=== PATIENT | female | born 1990 ===

== ENCOUNTER 2018-11-12 06:08 | Inpatient (IN) | payer OTHER ==
[~2018-11-12] VITALS: Ht 162.6 cm; Wt 66.2 kg
[2018-11-12] VITALS (16 sets, daily range): BP systolic 93–131; BP diastolic 55–89
[~2018-11-12 06:08] MED LIST: NKM
[2018-11-12] MEDS ORDERED: LR 1000ml 1,000 ML IVLG SCH (06:24)
--- NOTE | 2018-11-12 06:25 | Anethesia Preoperative Eval ---
Anesthesia Pre-op PMH/ROS General Date of Evaluation: Nov 12, 2018 Time of Evaluation: 07:11 Anesthesiologist: Danii ASA Score: ASA 1 Mallampati Score Class I : Soft palate, uvula, fauces, pillars visible Class II: Soft palate, uvula, fauces visible Class III: Soft palate, base of uvula visible Class IV: Only hard plate visible Mallampati Classification: Class I Surgeon: Bruno Diagnosis: Neck Pain Surgical Procedure: C 4-5 ADR Anesthesia History: none Family History: no anesthesia problems Allergies: Coded Allergies: No Known Allergies (Unverified , 11/10/18) Medications: see eMAR Patient NPO?: Yes Past Medical History Pulmonary: Reports: other - Bronchitis, Pneumonia Anesthesia Pre-op Phys. Exam Physician Exam Vital Signs Date Time Temp Pulse Resp B/P (MAP) Pulse Ox O2 Delivery O2 Flow Rate FiO2 11/12/18 06:40 97.8 61 18 104/62 (76) 99 11/12/18 06:53 Room Air Constitutional: NAD Neurologic: CN 2-12 intact Cardiovascular: RRR Respiratory: CTA Gastrointestinal: S/NT/ND Airway Exam Mallampati Score: Class I MO: full ROM: limited Teeth: intact Anesthesia Pre-op A/P Risk Assessment & Plan Assessment: ASA 1 Plan: GA, SED, GlideScope Go Status Change Before Surgery: No Pre-Antibiotics Dru Grams Ancef IV Given Within 1 Hr of Incision: Yes Time Given: 07:31 Aj Foy MD Nov 12, 2018 06:25
[2018-11-12] MEDS ORDERED: Atropine Sulfate 0.4mg/ml inj IVP PRN (06:30)
[2018-11-12] MEDS ORDERED: Ketorolac 30mg Inj IV PRN ×2 (06:30)
[2018-11-12] MEDS ORDERED: LORazepam Inj 2mg/ml 1ml IV PRN (06:30)
[2018-11-12] MEDS ORDERED: Hydromorphone 0.5mg/0.5ml inj IVP PRN (06:30)
[2018-11-12] MEDS ORDERED: Midazolam 2mg/2ml Inj IVP PRN (06:30)
[2018-11-12] MEDS ORDERED: fentaNYL 100 mcg/2 mL IV PRN (06:30)
[2018-11-12] MEDS ORDERED: Labetalol 5mg/ml 20ml vial IV PRN (06:30)
[2018-11-12] MEDS ORDERED: oxyCODONE HCL/Acetaminophen 5/325mg ORAL PRN (06:30)
[2018-11-12] MEDS ORDERED: Acetaminophen (Non formulary) 100 ML IV ONE (06:30)
[2018-11-12] MEDS ORDERED: DiphenhydrAMINE 50mg/ml Inj IVP PRN (06:30)
[2018-11-12] MEDS ORDERED: HYDROcodone/Acetamin 5/325 tab ORAL PRN ×2 (06:30→07:30)
[2018-11-12] MEDS ORDERED: Meperidine 50mg/ml Inj(FOR RIGORS ONLY) IVP PRN (06:30)
[2018-11-12] MEDS ORDERED: Metoclopramide 10mg/2ml Inj IVP PRN ×3 (06:30→07:45)
[2018-11-12] MEDS ORDERED: HYDROcodone/Acetamin 7.5/325 tab ORAL PRN ×3 (06:30→07:30)
[2018-11-12] MEDS ORDERED: Zemuron 50mg/5ml Inj IV ONE (06:32)
[2018-11-12] MEDS ORDERED: Vancomycin 1gm vial IVPB ONE (06:42)
[2018-11-12] MEDS ORDERED: Thrombin 5000 units TOPIC ONE (06:42)
[2018-11-12] MEDS ORDERED: Gelfoam Size TOPIC ONE (06:42)
[2018-11-12] MEDS ORDERED: Bacitracin 50000 Units Vial ONE (06:43)
[2018-11-12] MEDS ORDERED: Lidocaine 1% MPF 10mg/ml 5ml ONE (06:56)
[2018-11-12] MEDS ORDERED: Sodium Chloride 10ml vial INJ ONE (06:56)
[2018-11-12] MEDS ORDERED: Lidocaine 1% Plain 30 ml INJ ONE (06:56)
[2018-11-12] MEDS ORDERED: Dexamethasone 4mg/ml vial ONE (06:56)
[2018-11-12] MEDS ORDERED: Sterile Water Irrig 1000ml IRRIG ONE (07:00)
[2018-11-12] MEDS ORDERED: Neostigmine 1mg/ml 10ml Inj ONE (07:00)
[2018-11-12] MEDS ORDERED: LR 1000ml ONE (07:00)
[2018-11-12] MEDS ORDERED: NS Irrig 1000ml ONE (07:00)
[2018-11-12] MEDS ORDERED: Propofol 1,000mg/ 100ml btl IV ONE (07:00)
[2018-11-12] MEDS ORDERED: ceFAZolin sod 2 GM in D5W 110 ML IVPB ONE (07:00)
[2018-11-12] MEDS ORDERED: fentaNYL 100 mcg/2 mL IV ONE (07:12)
--- NOTE | 2018-11-12 07:21 | Immediate Post-Op Evaluation ---
Immediate Post-Op Evalulation Immediate Post-Op Evalulation Procedure: C4-5 ADR Date of Evaluation: Nov 12, 2018 Time of Evaluation: 09:39 IV Fluids: 700 LR Blood Products: 0 Estimated Blood Loss: 20 Urinary Output: 0 Blood Pressure Systolic: 99 Blood Pressure Diastolic: 46 Pulse Rate: 69 Respiratory Rate: 16 O2 Sat by Pulse Oximetry: 94 Temperature (Fahrenheit): 97 Pain Score (1-10): 2 Nausea: No Vomiting: No Complications 0 Patient Status: awake, reacts, patent, extubated, none Hydration Status: adequate Dru Grams Ancef IV Given Within 1 Hr of Incision: Yes Time Given: 07:31 Aj Foy MD Nov 12, 2018 07:21
--- NOTE | 2018-11-12 07:26 | Pre-Procedure Note/Attestation ---
Pre-Procedure Note/Attestation Complete Prior to Procedure Planned Procedure: not applicable Procedure Narrative: C45 artificial disc replacement Indications for Procedure Pre-Operative Diagnosis: C45 hnp Attestation I attest that I discussed the nature of the procedure; its benefits; risks and complications; and alternatives (and the risks and benefits of such alternatives ), prior to the procedure, with the patient (or the patient's legal in store representative). I attest that, if there was a reasonable possibility of needing a blood transfusion, the patient (or the patient's legal in store representative) was given the [facility] standardized written summary, pursuant to the Osbaldo Brittney Blood Safety Act ([place] Health and Safety Code # 1645, as amended). I attest that I re-evaluated the patient just prior to the surgery and that there has been no change in the patient's H&P, except as documented below: Juanjose Carr MD Nov 12, 2018 07:26
--- NOTE | 2018-11-12 07:27 | Brief Operative Note ---
Immediate Post Operative Note Operative Note Chief Complaint: neck pain and radiculopathy Pre-op Diagnosis: C45 hnp Procedure: C45 artificial disc replacement Post-op Diagnosis: same as pre-op Findings: consistent w/pre-op dx studies Surgeon: Bruno [employer] Supervisor: Shelia Anesthesia: general Specimen: none Complications: none Condition: stable Fluids: IVF Estimated Blood Loss: minimal Implant(s) used?: Yes - Prodisc C sz 5 Juanjose Carr MD Nov 12, 2018 07:27
[2018-11-12] MEDS ORDERED: Morphine Sulfate 2mg/ml Inj(IV/IM USE ONLY) IV PRN (07:30)
[2018-11-12] MEDS ORDERED: Morphine Sulfate 4mg/ml Inj (IV USE ONLY) IV PRN ×2 (07:30)
[2018-11-12] MEDS ORDERED: Milk of Magnesia 30ml Ud ORAL PRN (07:30)
[2018-11-12] MEDS ORDERED: Chloraseptic Spray 20mL Bottle ORAL PRN (07:30)
[2018-11-12] MEDS ORDERED: HYDROmorphone 1mg/ml Carpuject IVP PRN (07:30)
[2018-11-12] MEDS ORDERED: Glycopyrrolate 0.2mg/ml 1ml Vial ONE (08:53)
--- NOTE | 2018-11-12 09:28 | 48 Hour Post Anesthesia Eval ---
Post Anesthesia Evaluation Procedure: C4-5 ADR Date of Evaluation: Nov 12, 2018 Time of Evaluation: 11:56 Blood Pressure Systolic: 110 0: 67 Pulse Rate: 72 Respiratory Rate: 18 Temperature (Fahrenheit): 98.4 O2 Sat by Pulse Oximetry: 98 Airway: patent Nausea: No Vomiting: No Pain Intensity: 2 Hydration Status: adequate Cardiopulmonary Status: Stable Mental Status/LOC: patient returned to baseline Follow-up Care/Observations: 0 Post-Anesthesia Complications: 0 Follow-up care needed: ready to discharge Aj Foy MD Nov 12, 2018 09:28
--- NOTE | 2018-11-12 10:45 | NUR ---
NURSE NOTES: PATIENT RECEIVED FROM PACU ON BED AROUSABLE TO NAME. BEDSIDE REPORT RECEIVED. SURGICAL SITE ASSESSED; OIL PUMPER/ C/D/I. DENIES PAIN AT THIS TIME. PT. ORIENTED TO ROOM. BED IN OW AND LOCKED POSITION. CALL LIGHT WITHIN REACH.
[2018-11-12] MEDS: Dexamethasone 4mg/ml vial IVP SCH ×3 (12:20→23:24)
[2018-11-12] MEDS: NS w/KCl 20mEq 1000ml 1,000 ML IV SCH ×2 (12:20→23:24)
[2018-11-12] MEDS: ceFAZolin sod 1 GM in D5W 55 ML IV SCH ×2 (16:07→23:24)
--- NOTE | 2018-11-12 16:30 | NUR ---
NURSE NOTES: PATIENT AOX4. TOLERATING SOFT CERVICAL DIET.ASSISTED BATHROOM. GAIT STEADY DENIES DIZZINESS. VOIDING W/O DIFFICULTY. ALEXA PAIN JUST SORENESS TO SURGICAL SITE.
--- NOTE | 2018-11-12 17:51 | Cardiology Progress Note ---
Assessment/Plan Assessment/Plan [id number] Objective Last 24 Hour Vital Signs Date Time Temp Pulse Resp B/P (MAP) Pulse Ox O2 Delivery O2 Flow Rate FiO2 11/12/18 16:00 97.7 85 16 115/82 (93) 93 11/12/18 13:15 98.4 71 16 107/71 (83) 95 11/12/18 12:15 97.5 103 16 123/83 (96) 97 11/12/18 11:15 97.5 68 12 112/80 (91) 95 11/12/18 10:45 97.4 76 16 131/89 (103) 98 11/12/18 10:45 97.2 11/12/18 10:45 Nasal Cannula 3.0 11/12/18 10:33 97.2 67 17 107/77 96 Nasal Cannula 3 11/12/18 10:20 65 18 106/78 98 Nasal Cannula 3 11/12/18 10:15 70 15 105/75 98 Simple Mask 6 11/12/18 10:00 71 16 109/59 95 Simple Mask 6 11/12/18 09:55 69 15 104/73 95 Simple Mask 6 11/12/18 09:45 78 17 105/66 95 Simple Mask 6 11/12/18 09:40 65 15 94/57 95 Simple Mask 6 11/12/18 09:35 67 14 94/55 92 Simple Mask 6 11/12/18 09:28 97.0 70 16 93/57 92 Simple Mask 6 11/12/18 09:28 72 18 98 11/12/18 09:26 69 16 94 11/12/18 06:53 Room Air 11/12/18 06:40 97.8 61 18 104/62 (76) 99 Intake and Output 11/11/18 11/12/18 19:00 07:00 # Voids 1 Laboratory Tests Test 11/12/18 06:20 Urine HCG, Qualitative Negative (NEGATIVE) Pepe Sanchez MD Nov 12, 2018 17:51
[2018-11-12] MEDS: Docusate 100mg cap ORAL SCH (18:20)
--- NOTE | 2018-11-12 19:45 | NUR ---
NURSE NOTES: Pt lying in bed w/bed in lowest position and call light within reach. Pt A&Ox4, VSS, and in no apparent distress. IV site intact/asymptomatic w/IVF infusing & surgical site C/D/I. Will continue to monitor.
--- NOTE | 2018-11-12 19:59 | NUR ---
HAND-OFF: Report given to BOB ESTRELLA.
[2018-11-13] VITALS: BP 105/63
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
[2018-11-13 04:00] VITALS: BP 104/56
[2018-11-13] MEDS: ceFAZolin sod 1 GM in D5W 55 ML IV SCH (06:22)
[2018-11-13] MEDS: Dexamethasone 4mg/ml vial IVP SCH (06:22)
--- NOTE | 2018-11-13 07:15 | NUR ---
HAND-OFF: Report given to SAMEER Burden.
[2018-11-13 08:00] VITALS: BP 100/54
[2018-11-13] MEDS: NS w/KCl 20mEq 1000ml 1,000 ML IV SCH (08:00)
--- NOTE | 2018-11-13 08:00 | NUR ---
NURSE NOTES: Received report from Jayesh ESTRELLA, pt a/a/o x4 laying in bed with no signs of distress or other issues at this time. surgical incision dry and intact. IV on the Left hand gauge#18 running NS+20mEq@100ml/hr. pt is able to ambulate around the room and the unit with steady gait. call light within reach. bed in lowest position. side rales up x2. plan: to d/c home today. RN will call MD to request d/c order. I will f/u as needed.
--- NOTE | 2018-11-13 09:15 | NUR ---
NURSE NOTES: Called Dr. Carr to request d/c order since pt wants to go home and since PT cleared patient to go home. per MD ok to d/c home. pt's is aware and will call family to provide transportation. I will f/u as needed.
[2018-11-13] MEDS: Docusate 100mg cap ORAL SCH (09:25)
--- NOTE | 2018-11-13 10:38 | NUR ---
P.T NOTE: P.T evaluation completed and tx initiated consisted of education and instructions on spinal precautions and proper body mechanics to apply during functional mobility tasks thru written handout, discussion , practice and return demonstration. After P.T instructions, patient able to verbalize/indicate good understanding and good return demonstration of the above topic and mobility tasks. Pt is currently functioning safely and independently while adhering to spinal precautions by demonstrating proper body mechanics. No further P.T follow up needed. CT P.T services.
--- NOTE | 2018-11-13 11:10 | Cardiology Progress Note ---
Assessment/Plan Assessment/Plan 1. Radiculopathy with herniated nucleus pulposus. 2. Postoperative pain has walked hope to dc c home today vital are fine Subjective Cardiovascular: Denies: chest pain, lightheadedness, palpitations Respiratory: Denies: SOB with excertion Gastrointestinal/Abdominal: Denies: abdominal pain Genitourinary: Denies: burning Objective Last 24 Hour Vital Signs Date Time Temp Pulse Resp B/P (MAP) Pulse Ox O2 Delivery O2 Flow Rate FiO2 11/13/18 09:00 Room Air 11/13/18 08:00 97.5 75 17 100/54 (69) 95 11/13/18 04:00 97.4 70 18 104/56 (72) 95 11/13/18 00:00 98.5 79 18 105/63 (77) 98 11/12/18 21:00 Room Air 11/12/18 20:00 98.9 80 18 104/62 (76) 95 11/12/18 18:50 97.7 11/12/18 16:00 97.7 85 16 115/82 (93) 93 11/12/18 13:15 98.4 71 16 107/71 (83) 95 11/12/18 12:15 97.5 103 16 123/83 (96) 97 11/12/18 11:15 97.5 68 12 112/80 (91) 95 General Appearance: no apparent distress, alert Neck: no JVD Cardiovascular: normal rate, regular rhythm Respiratory/Chest: lungs clear, normal breath sounds Abdomen: normal bowel sounds, non tender, soft Extremities: no swelling - wound and anterior part of neck clean and dry Intake and Output 11/12/18 11/13/18 19:00 07:00 Intake Total 1805 ml 875 ml Output Total 30 ml Balance 1775 ml 875 ml Intake Oral 120 ml IV Total 1805 ml 755 ml Output Estimated Blood Loss 30 ml # Voids 2 1 Pepe Sanchez MD Nov 13, 2018 11:10
[2018-11-13 12:00] VITALS: BP 101/60
--- NOTE | 2018-11-13 13:35 | NUR ---
NURSE NOTES: Received order for discharge. belongings list and discharge instructions given to patient as well as prescription for [place] 10/325, pt stated that she will go to her regular pharmacy to fill out prescription. IV removed prior to d/c. 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 pt left the floor via w/c without any signs of distress or other issues at this time.
--- NOTE | 2018-11-13 19:00 | Operative Note - Dictated ---
DATE OF OPERATION: 11/12/2018 SURGEON: Juanjose Carr M.D., Orthopedic Spine Surgeon. MEDICAL PATHOLOGY TEACHER: FABIO Her. PREOPERATIVE DIAGNOSES: 1. Intractable neck pain. 2. Radiculopathy. 3. Herniation, C4-C5. 4. Neural foraminal stenosis C4-C5. 5. Stenosis. POSTOPERATIVE DIAGNOSES: 1. Intractable neck pain. 2. Radiculopathy. 3. Herniation, C4-C5. 4. Neural foraminal stenosis C4-C5. 5. Stenosis. PROCEDURE PERFORMED: 1. Anterior cervical discectomy and artificial disc replacement of C4-C5 using a Synthes ProDisc C 5 height. 2. Anterior cervical discectomy and fusion of C4-C5 using NuVasive Interlock C size 5, PEEK cage and three 13mm screws, Osteocel allograft bone and local autograft 3. Use of intraoperative microscope. 4. Motor-evoked potential monitoring. 5. Somatosensory evoked potential monitoring. 6. Supervision and interpretation of fluoroscopy. COMPLICATIONS: None. ANESTHESIA: General. ESTIMATED BLOOD LOSS: Less than 100 mL. INDICATIONS FOR SURGERY: This patient is a 28-year-old female, who has a history of diagnoses as listed above. As of result of this, the patient sustained intractable neck pain, radiculopathy, herniation, C4-C5, neural foraminal stenosis C4-C5, and stenosis. We tried a course of conservative management but despite this course there was still a significant component of persistent, recalcitrant neck pain and arm pain. The MRI demonstrated significant neural foraminal compromise secondary to disc herniations at C4-C5. We had a long discussion with Joleen regarding the risks and benefits of surgery. Our discussion included but was not limited to nonoperative management, chiropractic management, another epidural steroid injection as well definitive management in the form of surgery. We recommended an artificial disc replacement of cervical C4-C5 as final definitive management. We reviewed the risks and benefits of surgery with the patient. Our discussion included a comprehensive review of the clinical issues and the nature of the clinical decision. We reviewed the alternatives, including doing nothing. The patient elected to proceed accordingly with an artificial disc replacement of cervical C4-C5 We had a long discussion regarding the risks, alternatives and benefits of surgery. Our description of the risks included a discussion in person as well as a signed consent which detailed all pertinent risks from the procedure itself. Briefly, our discussion included but was not limited to infection, bleeding, pseudarthrosis, spinal cord injury, neurovascular injury, dural tear, CSF leak, neuropathy, paralysis, permanent weakness/drop foot/drop arm, paresthesias, blindness, palsy and weakness. The patient understood there may be a need for a revision surgery or additional procedures. Approach-related complications including dysphonia, dysphagia, blindness, permanent vocal cord and neural injury, hematoma, swallowing and breathing difficulty. Medical complications were reviewed including liver, kidney, shock, cardiopulmonary failure, anesthesia complications including , swelling, damage to the musculature, larynx/voice injury or loss, esophagus/throat, trachea, blood vessels and muscles/muscular sprain and lungs/pneumothorax during this surgical procedure; injury to deeper structures may be temporary or permanent. After this review of risks, the patient understood these and elected to proceed. A written and verbal consent was given. We discussed the pros and cons of all the alternatives. We discussed the uncertainties associated with the decision. Afterwards I assessed the patient's understanding and explored their preferences. All questions were answered and no guarantees were given. Medical clearance was obtained prior to surgery. INTRAOPERATIVE FINDINGS: There was a tear noted in the posterior longitudinal ligament measuring 20 degrees cephalad to caudad. This was probed with a Microsect curette 1B and through this hole, a tail nuclear tissue was followed and a nuclear fragment was noted down the left foramina encroaching on the nerve root and spinal cord. This was carefully resected with a chávez as this was causing neural foraminal encroachment. The disc itself was soft, mobile, and noncalcified, which can be expected in a degenerative process which have calcified discs. DESCRIPTION OF PROCEDURE: Under the benefit of general endotracheal anesthesia and with the assistance of the entire operative team, the patient was moved from the [facility] onto the operative table in the supine position. The head was secured and carefully positioned appropriately. Bilateral arms were secured with Gel Pads and foam and all bony prominences were padded. For the bilateral lower extremities, SCD and GRISEL hose were placed for DVT prophylaxis. A surgical timeout was called which corroborated our planned procedure of artificial disc replacement of an artificial disc replacement of cervical C4-C5. Preoperative antibiotics were administered within 30 minutes of the incision for antibiotic prophylaxis. Using lateral fluoroscopic radiography, the operative levels were delineated. Next the wound was prepped and draped with Chlorhexidine and sterile drapes. An incision was based on lateral fluoroscopy and we centered our incision at the C4-C5. Interspace and next using a standard Marshall-Tamayo anterior based approach the incision was taken down through the skin and subcutaneous tissues until the vertebral bodies and their corresponding disc spaces were visualized. A needle was placed into the interspace to confirm placement of the operative interspace and we performed the remainder of procedure under microscopic visualization. Next, using a bipolar and Bovie cautery to ensure meticulous hemostasis, the longus colli was mobilized bilaterally and retractors were placed deep to the longus colli bilaterally to address retraction. Next we turned our attention to the radical anterior discectomy. This was initially performed at C4-C5. First by using a 15 blade scalpel followed by narrow pituitaries and a Microsect 5-B curette was used to denude the endplate of all cartilaginous tissue. Next using a Clinc! AM8 drill bit the vertebral endplates were denuded of all residual cartilage in a [id number] and layer by layer fashion, and ultimately the posterior uncinate joints bilaterally and posterior osteophytic lips and margins were carefully denuded until clear visualization of the posterior longitudinal ligament was possible. An endplate preparation was performed in the exact same fashion using an intervertebral hammer smith, sequential distraction was obtained throughout the disc space. We saw a tear/rent in the PLL and this was carefully mobilized and dissected using a Microsect 1-B curet until we visualized a discrete disc herniation with compression of the spinal cord as well as neural foramina on the left. This neural foraminal compression was carefully resected using a Kerrison-1 and Kerrison-2 rongeurs until complete decompression of the spinal cord was visualized and complete decompression of the neural foramina and nerve root therein as well as the axilla and lateral margin of the nerve root was visualized and subsequently completely decompressed. The family was notified at one hour intervals throughout the procedure to provide for consistent updates. We next turned our attention towards trialing our implant within the disc space. We initially tried size 5 and this ProDisc Cervical spacer fit well in regards to depth and width. This implant was opened and prepared. Next under direct visualization I confirmed excellent fit in respect to the anterior and posterior vertebral bodies, the uncinate joints and in regards to toggle. Once satisfied with this placement on serial AP and lateral fluoroscopy I turned my attention towards cutting our parker. These were cut in the bones using a reciprocating drill and afterwards all free fragments of bone were irrigated. Next FloSeal was placed into the interspace, then removed in its entirety and the implant was inserted using fluoroscopic guidance. Next the Synthes ProDisc C size 5 ADR was then carefully advanced and secured into the intervertebral space under direct visualization and with supervision of AP and lateral fluoroscopic views. After a finger sweep we confirmed removal of all sponges. The retractor was removed and we next turned our attention to meticulous hemostasis with FloSeal and bipolar cautery. After the sponge and needle count was again found to be correct with our second count, we next turned our attention to closure. The wound was again copiously irrigated with antibiotic impregnated saline Closure consisted of 4-0 clear nylon for the platysma, and 5-0 clear nylon for the superficial skin. Final skin closure and dressings consisted of Dermabond. Prior to final closure, a final radiograph was obtained which demonstrated the hardware is intact with excellent position throughout. The patient tolerated the procedure well. The patient was carefully extubated after the conclusion of surgery. We discussed the findings of the surgery with the family upon completion of the case. At this point the patient was transferred to the spine floor for further observation. Juanjose Carr M.D. DR: ALESSANDRA JOB#: [id number] CC: CIRA
--- NOTE | 2018-11-15 22:04 | Discharge Summary ---
Discharge Summary Hospital Course Date of Admission Nov 12, 2018 at 06:08 Date of Discharge Nov 13, 2018 at 13:30 Admitting Diagnosis Intractable neck pain, radiculopathy, herniation C4-5 Reason for Hospitalization: Elective surgery HPI Joleen Maravilla is a 28 year old female who was admitted on Nov 12, 2018 at 06:08 for Herniated Nucleus Pulposus, Pain,Radiculopathy. Patient tried a course of conservative management but despite this course there was still a significant component of persistent, recalcitrant neck pain and arm pain. The MRI demonstrated significant neural foraminal compromise secondary to disc herniations at C4-C5. Different option of treatment were discussed with patient in detail. Patient was opted for surgical intervention. Patient subsequently was admitted for elective surgery. Consultations Dr. Sanchez Procedures s/p 11/12/[address] Carr 1. Anterior cervical discectomy and artificial disc replacement of C4-C5 using a Synthes ProDisc C 5 height. 2. Anterior cervical discectomy and fusion of C4-C5 using NuVasive Interlock C size 5, PEEK cage and three mm screws, Osteocel allograft bone and local autograft 3. Use of intraoperative microscope. 4. Motor-evoked potential monitoring. 5. Somatosensory evoked potential monitoring. 6. Supervision and interpretation of fluoroscopy. Hospital Course status post surgery course of recovery uneventful initially IV fluids s/p perioperative antibiotics and steroid/Decadron neurovascular status closely monitored, remain stable surgical incision clean, dry, and intact pain management was addressed and pain was controlled patient remain hemodynamically stable ambulated with PT, safe for ambulation patient was able to tolerate soft diet Cepacol lozenges provided for comfort IV fluids discontinued antiemetics were on board as needed voided freely bowel regimen instituted patient was stable for discharge discharge instructions provided prescription for Spencer 10/325 provided follow up with surgeon as outpatient as advised by surgeon FINAL DIAGNOSES 1. Intractable neck pain. 2. Radiculopathy. 3. Herniation, C4-C5. 4. Neural foraminal stenosis C4-C5. 5. s/p C4-5 artificial disc replacement Discharge Condition Upon Discharge: stable Discharge Disposition Patient was discharged home Discharge Instructions Discharge Instructions Special Instructions I have been assigned to complete a D/C Summary on this account. I was not involved in the patient management Krystina Jimenez NP Nov 15, 2018 22:04
== END 2018-11-13 13:30 | disposition home or self-care (01) | DRG 518 ==
LOC: SDSOVERFLO 06:08 → 3E 10:44
PROC: 0RR30JZ Replacement of Cervical Vertebral Disc with Synthetic Substitute, Open Approach (ICD-10-PCS; principal; 2018-11-12 07:00)
DX: M50.121 Cervical disc disorder at C4-C5 level with radiculopathy (principal); M48.02 Spinal stenosis, cervical region; V89.2XXS Person injured in unspecified motor-vehicle accident, traffic, sequela; M54.5 Low back pain
CPT/HCPCS: 36415; 72040; 76000; 81025; 86850; 86900; 86901; 87081; 94003; 94150; J2405; J2710